=== PATIENT | male | born 1950 | race Caucasian/White ===

== ENCOUNTER 2017-10-25 16:40 | Outpatient (CLI) | payer MEDICARE, OTHER | END 2017-10-25 16:41 | disposition home or self-care (01) | LOC: BICRAD 16:40 | PROVIDERS: ATTEND Chiropractor | DX: M54.5 Low back pain (principal); M47.896 Other spondylosis, lumbar region | CPT/HCPCS: 72100 ==

== ENCOUNTER 2021-01-29 10:41 | Outpatient (CLI) | payer MEDICARE | END 2021-01-29 10:42 | disposition home or self-care (01) | LOC: SCSRAD 10:41 | PROVIDERS: ATTEND Internal Medicine Rheumatology | DX: M54.5 Low back pain (principal); M54.2 Cervicalgia; M47.816 Spondylosis without myelopathy or radiculopathy, lumbar region; M47.812 Spondylosis without myelopathy or radiculopathy, cervical region | CPT/HCPCS: 72052; 72100 ==